=== PATIENT | male | born 2000 | race African-American/Black ===

== ENCOUNTER 2022-04-09 23:35 | Emergency (ER) | payer OTHER ==
[~2022-04-09] VITALS: Ht 185.4 cm; Wt 90.7 kg
[2022-04-09 23:40] VITALS: BP 136/78
--- NOTE | 2022-04-09 23:40 | NUR ---
JAQUELINE HAYWOOD TO CHAIR B
--- NOTE | 2022-04-09 23:47 | NUR ---
Patient being evaluated by physician
--- NOTE | 2022-04-10 00:02 | NUR ---
PATIENT BIB [facility] DEPT. PATIENT EXAMINED BY . PATIENT MEDICALLY CLEARED AND RELEASED IN CUSTODY IN STABLE CONDITION. ORIGINAL PRE-BOOK FORM GIVEN TO OFFICER PRASHANTH, #[id number].
== END 2022-04-10 00:02 ==
LOC: MED 23:35
DX: F10.129 Alcohol abuse with intoxication, unspecified (principal); Y90.9 Presence of alcohol in blood, level not specified; V49.88XA Car occupant (driver) (passenger) injured in other specified transport accidents, initial encounter; Y93.89 Activity, other specified; Y92.89 Other specified places as the place of occurrence of the external cause; Y99.8 Other external cause status
CPT/HCPCS: 99283